=== PATIENT | female | born 2000 | race Hispanic/Latino ===

== ENCOUNTER 2019-07-23 12:50 | Inpatient (IN) | payer MEDICAID ==
[~2019-07-23] VITALS: Ht 154.9 cm; Wt 59.9 kg
[2019-07-23] MEDS ORDERED: LACTATED RINGERS 1000ML 1,000 ML IV PRN (13:27)
[2019-07-23] MEDS ORDERED: OXYTOCIN 10 USP UNITS/ML 20 UNIT in LACTATED RINGERS 1000ML 1,000 ML IV SCH (13:30)
[2019-07-23 13:43] LABS: HEMATOCRIT 34.4 % (36-48); MEAN CORPUSCULAR HEMOGLOBIN 29.3 pg (27.0-33.0); MEAN CORPUSCULAR HGB CONC 33.9 g/dL (32.0-36.0); MEAN CORPUSCULAR VOLUME 86.3 fL (80-100); PLATELET COUNT (AUTO) 286 K/uL (130-400); RED BLOOD CELL COUNT(AUTO) 3.99 MIL/uL (4.00-5.50); RED CELL DISTRIBUTION WIDTH 13.4 % (11.0-15.5); WHITE BLOOD COUNT (AUTO) 14.8 K/uL (4.8-10.8)
[2019-07-23] MEDS ORDERED: PROMETHAZINE HCL 25 MG/ML 1ML AMPULE IM SCH (13:45)
[2019-07-23] MEDS ORDERED: MEPERIDINE-PF 50 MG/ML SYG IVP SCH (13:45)
[2019-07-23] MEDS ORDERED: OXYTOCIN-LR 20 UNITS/1000 ML 1,000 ML IV ONE ×2 (14:46→21:45)
[2019-07-23] MEDS ORDERED: DURAMORPH PF1 MG/ML 10ML AMP IV ONE (18:59)
[2019-07-23] MEDS ORDERED: LACTATED RINGERS 1000ML 1,000 ML IV SCH (19:00)
[2019-07-23] MEDS ORDERED: CEFAZOLIN SODIUM 1 GM VIAL IVP PRN (19:00)
[2019-07-23] MEDS ORDERED: OXYTOCIN 10 USP UNITS/ML ONE (19:26)
[2019-07-23] MEDS ORDERED: ONDANSETRON HCL 4 MG/2 ML VIAL ONE (19:29)
[2019-07-23] MEDS ORDERED: OXYTOCIN 10 UNIT/1ML 10ML VIAL IV ONE (19:32)
[2019-07-23] MEDS: OXYTOCIN-LR 20 UNITS/1000 ML 1,000 ML IV PRN ×2 (19:33→21:45)
[2019-07-23] MEDS ORDERED: PHARMACY COMMUNICATION MISC SCH (22:00)
[2019-07-23] MEDS ORDERED: PROMETHAZINE HCL 25 MG/ML 1ML AMPULE IM PRN (22:00)
[2019-07-23] MEDS ORDERED: DEXTROSE 5 %-0.45 % NACL 1,000 ML IV PRN (22:00)
[2019-07-23] MEDS ORDERED: SODIUM CHLORIDE 0.9% 10 ML VIAL IVP PRN (22:00)
[2019-07-23] MEDS ORDERED: MEPERIDINE-PF 75 MG/ML SYG IM PRN (22:00)
[2019-07-23 22:10] VITALS: BP 133/97
[2019-07-23] MEDS ORDERED: PREN1TAB80 PO (22:39)
[2019-07-23] MEDS ORDERED: ONDANSETRON HCL 4 MG/2 ML VIAL IVP PRN (23:00)
[2019-07-23] MEDS ORDERED: NALOXONE HCL 0.4 MG/1 ML ML IVP PRN (23:00)
[2019-07-23 23:15] VITALS: BP 141/92
[2019-07-23] MEDS ORDERED: CALDOLOR 800MG+NS 250ML 250 ML IV ONE (23:16)
[2019-07-23] MEDS: IBUPROFEN 800MG + NS 250ML IV PRN (23:53)
[2019-07-24 03:42] VITALS: BP 118/56
[2019-07-24] MEDS ORDERED: HYDROCODONE/ACETAMINOPHEN 5/325 MG TAB PO PRN (05:30)
[2019-07-24] MEDS ORDERED: ACETAMINOPHEN-CODEINE 300/30MG TAB PO PRN (05:30)
[2019-07-24] MEDS ORDERED: ACETAMINOPHEN EXTRA STRENGTH 500 MG TABLET PO PRN (05:30)
[2019-07-24] MEDS ORDERED: BISACODYL 10 MG SUPP.RECT RC PRN (05:30)
[2019-07-24] MEDS ORDERED: LANOLIN 30GM OINTMENT TP PRN (05:30)
[2019-07-24 05:59] LABS: MEAN CORPUSCULAR HEMOGLOBIN 28.8 pg (27.0-33.0); MEAN CORPUSCULAR HGB CONC 33.6 g/dL (32.0-36.0); MEAN CORPUSCULAR VOLUME 85.7 fL (80-100); PLATELET COUNT (AUTO) 207 K/uL (130-400); RED CELL DISTRIBUTION WIDTH 13.7 % (11.0-15.5); WHITE BLOOD COUNT (AUTO) 13.1 K/uL (4.8-10.8)
[2019-07-24 06:10] LABS: HEPATITIS Bs ANTIGEN SCREEN P Negative (Negative)
--- NOTE | 2019-07-24 06:25 | NUR ---
gabriel catheter discontinued, tip intact, pericare done. abdominal dressing removed, applied telfa dressing. applied abdominal binder. informed to call for assistance to the bathroom. Addendum: 07/24/19 at 0721 by MICHELLE BOYLE RN Amended: Links added.
[2019-07-24] MEDS: IBUPROFEN 800MG + NS 250ML IV PRN (06:32)
[2019-07-24 07:30] VITALS: BP 112/58
[2019-07-24] MEDS: DOCUSATE SODIUM 100 MG CAP PO SCH ×2 (08:57→20:42)
[2019-07-24] MEDS: SIMETHICONE 80 MG TAB.CHEW PO PRN ×2 (08:57→20:42)
--- NOTE | 2019-07-24 09:14 | NUR ---
NATASHA MONTANEZ CNM ROUNDING ON PATIENT AT THIS TIME. POC DISCUSSED.
[2019-07-24 11:24] VITALS: BP 105/57
[2019-07-24 15:58] LABS: RAPID PLASMA REAGIN NONREACTIVE (NONREACTIVE)
[2019-07-24 17:00] VITALS: BP 126/80
[2019-07-24] MEDS: IBUPROFEN 600 MG TABLET PO PRN (17:06)
[2019-07-24 19:40] VITALS: BP 101/59
[2019-07-24 23:11] VITALS: BP 106/65
--- NOTE | 2019-07-25 | NUR ---
PT. INCONTINENT OF URINE IN BED, UP WITH ASSIST BY SYDNEE TO BR AND SHOWERED.
[2019-07-25 00:04] VITALS: BP 124/76
--- NOTE | 2019-07-25 00:40 | NUR ---
PT AMBULATED WITH ASSIST IN THE HALLWAY FOR 15 MINUTES, WELL TOLERATED. DENIED PAIN AND DISCOMFORT.
[2019-07-25 03:33] VITALS: BP 128/73
[2019-07-25 07:49] VITALS: BP 126/76
[2019-07-25] MEDS: DOCUSATE SODIUM 100 MG CAP PO SCH (08:53)
[2019-07-25] MEDS: SIMETHICONE 80 MG TAB.CHEW PO PRN (08:53)
[2019-07-25] MEDS: IBUPROFEN 600 MG TABLET PO PRN (09:09)
[2019-07-25 11:38] VITALS: BP 110/65
--- NOTE | 2019-07-25 13:55 | NUR ---
DISCHARGE PATIENT LEFT UNIT VIA WHEELCHAIR WITH BABY IN ARMS ACCOMPANIED BY FAMILY MEMBER. PERSONAL VEHICLE USED FOR TRANSPORTATION. BABY SECURE IN VEHICLE.
== END 2019-07-25 13:55 | disposition home or self-care (01) | DRG 540 ==
LOC: EDH 12:50 → LDH 12:51 → OBSVTOIN 12:51 → WSH 22:15
PROVIDERS: ADMIT Obstetrics & Gynecology; ATTEND Obstetrics & Gynecology
PROC: 10D00Z1 Extraction of Products of Conception, Low, Open Approach (ICD-10-PCS; principal; 2019-07-23 19:13)
DX: O76 Abnormality in fetal heart rate and rhythm complicating labor and delivery (principal); O48.0 Post-term pregnancy; O62.2 Other uterine inertia; Z37.0 Single live birth; Z3A.41 41 weeks gestation of pregnancy
CPT/HCPCS: 36415; 59510; 81001; 85027; 86592; 86701; 86850; 86900; 86901; 87340; 87390; A4344; A4450; G0378; J0690; J1741; J2175; J2274; J2405; J2550; J2590; J7120